=== PATIENT | female | born 1995 | race Caucasian/White ===

== ENCOUNTER 2022-04-21 16:50 | Emergency (ER) | payer OTHER ==
[2022-04-21] MEDS ORDERED: IV NORMAL SALINE 1000ML BAG 1,000 ML IV SCH (17:15)
[2022-04-21 17:18] LABS: BASO % 0 % (0-3); EOS # 0.1 x10^3/uL (0.0-0.7); EOS % 2 % (0-3); HEMATOCRIT 42.6 % (36.0-47.0); HEMOGLOBIN 14.9 g/dL (12.0-15.5); LYMPH # 1.8 x10^3/uL (1.0-4.8); LYMPH % 24 % (24-48); MEAN CORPUSCULAR HEMOGLOBIN 31 pg (25-35); MEAN CORPUSCULAR HGB CONC 35 g/dL (31-37); MEAN CORPUSCULAR VOLUME 88 fL (79-100); MONO # 0.3 x10^3/uL (0.0-1.1); MONO % 4 % (0-9); NEUT # 5.3 x10^3/uL (1.8-7.7); NEUT % 70 % (31-73); PLATELET COUNT 301 x10^3/uL (140-400); RED BLOOD COUNT 4.84 x10^6/uL (3.50-5.40); RED CELL DISTRIBUTION WIDTH 11.7 % (11.5-14.5); WHITE BLOOD COUNT 7.6 x10^3/uL (4.0-11.0)
[2022-04-21 17:24] LABS: PREG TEST PT QUAL NEGATIVE (NEG); PROTHROMBIN TIME PATIENT 12.2 SEC (11.7-14.0)
[2022-04-21 17:25] LABS: BARBITURATES NEG (NEG); BENZODIAZEPINES NEG (NEG); CANNABINOIDS NEG (NEG); COCAINE NEG (NEG); METHADONE NEG (NEG); OPIATES NEG (NEG); PHENCYCLIDINE NEG (NEG)
[2022-04-21 17:25] LABS: CALCIUM 9.6 mg/dL (8.5-10.1); CREATININE 0.6 mg/dL (0.6-1.0); POTASSIUM 3.5 mmol/L (3.5-5.1)
[2022-04-21] MEDS ORDERED: DIPHTH,PERTUSS(ACELL),TET TOX 0.5 ML DISP.SYRIN. VAX IM ONE (17:30)
[2022-04-21 17:31] LABS: ALBUMIN 3.9 g/dL (3.4-5.0); TOTAL BILIRUBIN 0.5 mg/dL (0.2-1.0); TOTAL PROTEIN 7.8 g/dL (6.4-8.2)
[2022-04-21 17:50] LABS: AMPHETAMINE/METHAMPHETAMINE NEG (NEG)
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
[2022-04-21] MEDS ORDERED: INSULIN REGULAR 100 UNIT/ML 3ML VIAL. IV ONE (18:15)
[2022-04-21] MEDS ORDERED: IV NORMAL SALINE 1000ML BAG 1,000 ML IV ONE (18:15)
[2022-04-21] MEDS ORDERED: BACITRACIN TOPICAL OINT PACKET. TP ONE (19:00)
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
[2022-04-21] MEDS ORDERED: CYCL10TA19 PO (20:36)
[2022-04-21] MEDS ORDERED: IBUP-1007 PO (20:36)
[2022-04-21] MEDS ORDERED: METF100010 PO (20:36)
--- NOTE | 2022-04-26 07:45 | EKG ---
[facility] [address] [place] [address] Test Date: 2022-04-21 Test Time: 19:41:34 Pat Name: YONI MARINELLI Department: Room: Gender: F Resaw Feeder: : 1995 Requested By: PIPPA MATA Order Number: [id number] Reading MD: Kendall Bartholomew MD Measurements Intervals [place] Rate: 85 P: 39 MN: 148 QRS: 6 QRSD: 74 T: -43 QT: 396 QTc: 477 Interpretive Statements SINUS RHYTHM Electronically Signed On 04-26-2022 11:32:25 CDT by Kendall Bartholomew MD
== END 2022-04-21 21:01 | disposition home or self-care (01) ==
LOC: ER 16:50
DX: S20.219A Contusion of unspecified front wall of thorax, initial encounter (principal); S80.02XA Contusion of left knee, initial encounter; S80.01XA Contusion of right knee, initial encounter; R51.9 Headache, unspecified; E11.9 Type 2 diabetes mellitus without complications; V49.49XA Driver injured in collision with other motor vehicles in traffic accident, initial encounter; Y92.488 Other paved roadways as the place of occurrence of the external cause; Y93.89 Activity, other specified; Y99.8 Other external cause status
CPT/HCPCS: 36415; 70450; 71045; 72125; 72170; 80053; 80307; 81025; 82553; 82962; 84484; 84703; 85025; 85610; 85730; 86850; 86900; 86901; 90471; 90715; 93005; 99285; G0480; 99283-25